=== PATIENT | female | born 1945 | race Caucasian/White ===

== ENCOUNTER 2017-01-25 09:48 | Emergency (ER) | payer MEDICARE ==
[2017-01-25 10:54] LABS: Anion Gap 18 mmol/L; BUN/Creatinine Ratio 18.33; Blood Urea Nitrogen 11 mg/dL (7-17); Calcium 9.2 mg/dL (8.4-10.2); Carbon Dioxide 26 mmol/L (22-30); Chloride 101.6 mmol/L (98-107); Glucose 134 mg/dL (65-100); Potassium 4.3 mmol/L (3.6-5.0); Sodium 141 mmol/L (137-145)
[2017-01-25 10:59] LABS: Basophils % (Auto) 0.9 % (0.0-1.8); Eosinophils % (Auto) 5.4 % (0.0-4.3); Hematocrit 40.5 % (30.3-42.9); Hemoglobin 13.3 gm/dl (10.1-14.3); Mean Corpuscular HGB Conc 33 % (30-34); Mean Corpuscular Volume 79 fl (79-97); Platelet Count 252 K/mm3 (140-440); Red Blood Count 5.15 M/mm3 (3.65-5.03); Red Cell Distribution Width 17.2 % (13.2-15.2); White Blood Count 6.4 K/mm3 (4.5-11.0)
[2017-01-25 11:03] LABS: Mean Corpuscular Hemoglobin 26 pg (28-32)
[2017-01-25 11:49] VITALS: BP 113/60
--- NOTE | 2017-01-25 12:02 | Emergency Department Report ---
ED General Adult HPI - General Chief complaint: High BP Stated complaint: HIGH BLOOD PRESSURE, LEFT ARM PAIN Time Seen by Provider: 01/25/17 11:45 Source: patient Mode of arrival: Ambulatory Limitations: No Limitations - History of Present Illness Initial comments: Patient arrives with her son who states he checks her blood pressure on a daily basis. She is currently taking losartan. It has been well controlled until yesterday when it was about 150/87. They were concerned and therefore came to the emergency department for evaluation. Patient's only symptom really is a feeling of malaise. She denies chest pain dyspnea or any change in her urine output. She is actually asymptomatic at this time. Other than the elevated blood pressure and malaise she had no specific complaints. Patient has been monitored here for some time and has had. She is an regular patient of Dr. Chisholm. History was obtained by me in Greek. -: hour(s) Severity scale (0 -10): 0 Consistency: intermittent, now resolved Improves with: none Worsens with: none Associated Symptoms: denies other symptoms - Related Data Home Medications Medication Instructions Recorded Confirmed Last Taken Losartan [Cozaar] 1 tab PO DAILY 05/31/13 05/31/13 05/31/13 Allergies Allergy/AdvReac Type Severity Reaction Status Date / Time Penicillins AdvReac Rash Verified 05/31/13 13:39 ED Review of Systems ROS: Stated complaint: HIGH BLOOD PRESSURE, LEFT ARM PAIN Other details as noted in HPI Constitutional: malaise. denies: chills, fever Eyes: denies: eye pain, eye discharge, vision change ENT: denies: ear pain, throat pain Respiratory: denies: cough, shortness of breath, wheezing Cardiovascular: denies: chest pain, palpitations Endocrine: no symptoms reported Gastrointestinal: denies: abdominal pain, nausea, diarrhea Genitourinary: denies: urgency, dysuria, discharge Musculoskeletal: denies: back pain, joint swelling, arthralgia Skin: denies: rash, lesions Neurological: denies: headache, weakness, paresthesias Psychiatric: denies: anxiety, depression Hematological/Lymphatic: denies: easy bleeding, easy bruising ED Past Medical Hx - Past Medical History Previous Medical History?: Yes Hx Hypertension: Yes (2005) - Surgical History Past Surgical History?: Yes Hx Appendectomy: Yes (1967) - Social History Smoking Status: Never Smoker Substance Use Type: Prescribed - Medications Home Medications: Home Medications Medication Instructions Recorded Confirmed Last Taken Type Losartan [Cozaar] 1 tab PO DAILY 05/31/13 05/31/13 05/31/13 History ED Physical Exam - General Limitations: No Limitations General appearance: alert, in no apparent distress - Head Head exam: Present: atraumatic, normocephalic - Eye Eye exam: Present: normal appearance. Absent: scleral icterus - ENT ENT exam: Present: mucous membranes moist - Neck Neck exam: Present: normal inspection - Respiratory Respiratory exam: Present: normal lung sounds bilaterally. Absent: respiratory distress - Cardiovascular Cardiovascular Exam: Present: regular rate, normal rhythm. Absent: systolic murmur, diastolic murmur, rubs, gallop - GI/Abdominal GI/Abdominal exam: Present: soft, normal bowel sounds. Absent: distended, tenderness, guarding, rebound - Extremities Exam Extremities exam: Present: normal inspection - Back Exam Back exam: Present: normal inspection - Neurological Exam Neurological exam: Present: alert, oriented X3, CN II-XII intact. Absent: motor sensory deficit - Psychiatric Psychiatric exam: Present: normal affect, normal mood - Skin Skin exam: Present: warm, dry, intact, normal color. Absent: rash ED Course Vital Signs 01/25/17 01/25/17 01/25/17 10:06 11:48 11:49 Temperature 98.2 F Pulse Rate 80 72 72 Respiratory 20 16 Rate Blood Pressure 131/75 Blood Pressure 113/60 [Left] O2 Sat by Pulse 98 95 Oximetry - Reevaluation(s) Reevaluation #1: Patient appropriate for outpatient follow-up. 01/25/17 11:59 ED Medical Decision Making - Lab Data Result diagrams: 01/25/17 10:20 01/25/17 10:20 - EKG Data EKG shows normal: sinus rhythm, axis, intervals, ST-T waves - EKG Data Interpretation: no acute changes, nonspecific ST-T wave melinda, other (Q seen in V2 ) Critical care attestation.: If time is entered above; I have spent that time in minutes in the direct care of this critically ill patient, excluding procedure time. ED Disposition Clinical Impression: Essential hypertension, Malaise Disposition: DC- TO HOME OR SELFCARE Is pt being admited?: No Does the pt Need Aspirin: No Condition: Stable Instructions: Hypertension (ED) Additional Instructions: Continue current medication. Follow-up with Dr. Chisholm. Return any acute change or problems. Referrals: KAMILLE JEFFREY MD [Primary Care Provider] - 3-5 Days Time of Disposition: 12:02 Print Language: BELARUSIAN
== END 2017-01-25 12:19 | disposition home or self-care (01) ==
LOC: ED 09:48
DX: I10 Essential (primary) hypertension (principal); R53.81 Other malaise
CPT/HCPCS: 36415; 80048; 84484; 85025; 93005; 93010